=== PATIENT | male | born 1975 | race Two or more races ===

== ENCOUNTER 2018-11-15 07:05 | Emergency (ER) | payer OTHER ==
[~2018-11-15] VITALS: Ht 185.4 cm; Wt 113.4 kg
[2018-11-15 07:19] VITALS: BP 136/96
[2018-11-15 07:58] LABS: Urine WBC None Seen /hpf (0 - 3)
[2018-11-15 08:18] LABS: Basophils # (auto) 0 uL; Basophils % (auto) 0.7 % (0.0-2.0); Eosinophils # (auto) 0.1 uL; Eosinophils % (auto) 2.3 % (0.0-7.0); Hemoglobin 15.2 g/dL (13.5-17.5); Lymphocytes # (auto) 1.3 uL; Lymphocytes % (auto) 26.1 % (10.0-50.0); Mean Corpuscular Hemoglobin 29.4 pg (28.0-32.0); Mean Corpuscular Hgb Conc. 33.9 g/dL (32.0-36.0); Mean Corpuscular Volume 86.8 fL (80.0-100.0); Monocytes # (auto) 0.4 uL; Monocytes % (auto) 7.4 % (0.0-12.0); Neutrophils # (auto) 3.3 uL; Neutrophils % (auto) 63.5 % (37.0-80.0); Platelet Count (auto) 245 10^3/uL (140-450); Red Blood Cells 5.18 10^6/uL (4.5-5.90); Red Cell Distribution Width 13.7 % (11.8-14.3); White Blood Cell 5.2 10^3/uL (4.4-10.8)
[2018-11-15 08:24] LABS: Urine Bacteria NONE SEEN /hpf (None Seen); Urine Blood Negative /uL (Negative); Urine Mucus FEW (None Seen); Urine Specific Gravity 1.021 (1.001-1.035)
[2018-11-15 08:26] LABS: Alcohol, Urine < 3.0 mg/dL (0-5); Amphetamine Screen, Urine NEGATIVE (NEGATIVE); Barbiturate Scree,Urine NEGATIVE (NEGATIVE); Benzodiazephine Screen, Urine NEGATIVE (NEGATIVE); Cannabinoid Screen, Urine NEGATIVE (NEGATIVE); Cocaine Screen, Urine NEGATIVE (NEGATIVE); Opiate Scree,Urine NEGATIVE (NEGATIVE); Phencyclidine Screen, Urine NEGATIVE (NEGATIVE)
[2018-11-15 08:30] LABS: Alanine Aminotransferase 81 U/L (16-61); Amylase 45 U/L (25-115); Anion Gap 7 (5-15); Aspartate Aminotransferase 45 U/L (15-37); BUN/Creatinine Ratio 18.8; Blood Urea Nitrogen 16 mg/dL (7-18); Calcium 8.5 mg/dL (8.5-10.1); Carbon Dioxide 25 mmol/L (21-32); Chloride 106 mmol/L (98-107); GFR African American 127 mL/min; GFR Non-African American 105 mL/min; Glucose 108 mg/dL (74-106); Lipase 133 U/L (73-393); Potassium 4.1 mmol/L (3.5-5.1); Sodium 138 mmol/L (136-145)
[2018-11-15 08:34] LABS: Alkaline Phosphatase 79 U/L (45-117); Bilirubin, Total 0.5 mg/dL (0.2-1.0); Total Protein 7.6 g/dL (6.4-8.2)
== END 2018-11-15 09:27 | disposition left against medical advice (07) ==
LOC: ER 07:05
DX: R11.2 Nausea with vomiting, unspecified (principal); Z53.21 Procedure and treatment not carried out due to patient leaving prior to being seen by health care provider
CPT/HCPCS: 36415; 71045; 80053; 80307; 81001; 82150; 83690; 84484; 85025; 93005

== ENCOUNTER 2023-08-13 23:53 | Emergency (ER) | payer SELFPAY ==
[~2023-08-13] VITALS: Ht 185.4 cm; Wt 118.0 kg
[2023-08-14 00:34] LABS: Hematocrit 45.2 % (41.0-53.0); Hemoglobin 15.4 g/dL (13.5-17.5); Mean Corpuscular Hemoglobin 29.6 pg (28.0-32.0); Mean Corpuscular Hgb Conc. 34.1 g/dL (32.0-36.0)
[2023-08-14 00:43] LABS: White Blood Cell 7.4 10^3/uL (4.4-10.8)
[2023-08-14 00:56] LABS: Alanine Aminotransferase 67 U/L (7-40); Albumin 4.7 g/dL (3.2-4.8); Alkaline Phosphatase 104 U/L (46-116); Anion Gap 8 (5-15); Aspartate Aminotransferase 36 U/L (13-40); BUN/Creatinine Ratio 21.2 (10.0-20.0); Blood Urea Nitrogen 18 mg/dL (9-23); Carbon Dioxide 28 mmol/L (20-30); Chloride 104 mmol/L (98-107); Glucose 118 mg/dL (74-106); Lipase 50 U/L (12-53); Potassium 3.5 mmol/L (3.5-5.1); Sodium 140 mmol/L (136-145)
[2023-08-14 00:57] LABS: Bilirubin, Total 0.7 mg/dL (0.2-1.0); Total Protein 7.6 g/dL (5.7-8.2)
[2023-08-14 01:01] LABS: Band Neutrophils % (manual) 0; Basophils % (manual) 0 (0.0-2.0); Blast Cells 0; Eosinophils % (manual) 0 (0-7); Metamyelocytes % 0; Myelocytes % 0; Promyelocytes % 0; Reactive Lymphocytes 0
[2023-08-14 01:19] LABS: Lymphocytes % (manual) 41 (10.0-50.0); Monocytes % (manual) 10 (0-12); Platelet Estimate Adequate; RBC Morphology Normal
[2023-08-14] MEDS ORDERED: ZOFR4T PO (05:06)
[2023-08-14] MEDS ORDERED: OMEP20TA PO (05:06)
[2023-08-14] MEDS ORDERED: ACET-1304 PO (05:06)
[2023-08-14] MEDS: SODIUM CHLORIDE 0.9% 1,000 ML IV ONE (05:41)
[2023-08-14] MEDS: ONDANSETRON HCL 4 MG/2 ML VIAL IV ONE (05:42)
[2023-08-14] MEDS: PANTOPRAZOLE 40 MG/10 ML VIAL INJ IV ONE (05:44)
[2023-08-14] MEDS: MORPHINE SULFATE 4 MG/ML SYR/VIAL IV ONE (05:44)
[2023-08-14 06:36] VITALS: BP 156/96; PULSE 73; RESP 16; TEMP 98.2; O2SAT 100
== END 2023-08-14 06:36 | disposition home or self-care (01) ==
LOC: ER 23:53
DX: K80.50 Calculus of bile duct without cholangitis or cholecystitis without obstruction (principal); R11.2 Nausea with vomiting, unspecified; I10 Essential (primary) hypertension; F10.90 Alcohol use, unspecified, uncomplicated; Z87.891 Personal history of nicotine dependence; Z79.899 Other long term (current) drug therapy; Y90.0 Blood alcohol level of less than 20 mg/100 ml
CPT/HCPCS: 36415; 74176; 80053; 83690; 84484; 85007; 85027; 96361; 96374; 96375; 99285; C9113; J2270; J2405; J7030; 93005

== ENCOUNTER 2023-10-09 13:38 | Inpatient (IN) | payer MEDICAID, OTHER ==
[~2023-10-09] VITALS: Ht 185.4 cm; Wt 114.1 kg
[~2023-10-09 13:38] MED LIST: ACET-1304 PO; OMEP20TA PO; ZOFR4T PO
[2023-10-09 14:24] LABS: Basophils # (auto) 0 10 ^3/uL (0-0.2); Basophils % (auto) 0.5 % (0.0-2.0); Eosinophils # (auto) 0.1 10 ^3/uL (0-0.8); Eosinophils % (auto) 1.6 % (0.0-7.0); Hematocrit 46.4 % (41.0-53.0); Hemoglobin 15.9 g/dL (13.5-17.5); Lymphocytes # (auto) 0.8 10 ^3/uL (0.4-5.4); Lymphocytes % (auto) 17.2 % (10.0-50.0); Mean Corpuscular Hemoglobin 29.8 pg (28.0-32.0); Mean Corpuscular Hgb Conc. 34.3 g/dL (32.0-36.0); Mean Corpuscular Volume 86.9 fL (80.0-100.0); Monocytes # (auto) 0.5 10 ^3/uL (0-1.3); Monocytes % (auto) 10.5 % (0.0-12.0); Neutrophils # (auto) 3.4 10 ^3/uL (1.6-8.6); Neutrophils % (auto) 70.2 % (37.0-80.0); Nucleated Red Blood Cells % 0.1 %; Red Blood Cells 5.34 10^6/uL (4.5-5.90); Red Cell Distribution Width 12.8 % (11.8-14.3); White Blood Cell 4.8 10^3/uL (4.4-10.8)
[2023-10-09 14:38] LABS: Alanine Aminotransferase 342 U/L (7-40); Albumin 4.7 g/dL (3.2-4.8); Alkaline Phosphatase 277 U/L (46-116); Anion Gap 5 (5-15); Aspartate Aminotransferase 193 U/L (13-40); BUN/Creatinine Ratio 9.2 (10.0-20.0); Blood Urea Nitrogen 7 mg/dL (9-23); Calcium 9.9 mg/dL (8.5-10.1); Carbon Dioxide 27 mmol/L (20-30); Chloride 104 mmol/L (98-107); Glucose 110 mg/dL (74-106); Potassium 3.4 mmol/L (3.5-5.1); Sodium 136 mmol/L (136-145)
[2023-10-09 14:39] LABS: Bilirubin, Total 4.2 mg/dL (0.2-1.0); Total Protein 7.6 g/dL (5.7-8.2)
[2023-10-09 14:41] LABS: Urine Bacteria FEW /hpf (None Seen); Urine Blood Negative /uL (Negative); Urine Clarity Clear (Clear); Urine Color Dark-Yellow (Yellow); Urine Protein, UAD Negative (Negative); Urine Specific Gravity 1.009 (1.001-1.035); Urine Urobilinogen Normal (Negative); Urine WBC 2 /hpf (0 - 3)
[2023-10-09 14:55] LABS: Lipase 49 U/L (12-53)
[2023-10-09] MEDS: ONDANSETRON HCL 4 MG/2 ML VIAL IV ONE (14:57)
[2023-10-09] MEDS: PIPERACILLIN-TAZOB 3.375GM 100 ML IV ONE (14:57)
[2023-10-09] MEDS: MORPHINE SULFATE 4 MG/ML SYR/VIAL IV ONE (14:59)
[2023-10-09] MEDS: SODIUM CHLORIDE 0.9% 1,000 ML IVB ONE (15:00)
[2023-10-09 15:53] LABS: INR 1.09 (0.9-1.15); Partial Thromboplastin Time 29.8 SEC (24.5-34.5); Prothrombin Time 11.5 sec (9.3-11.8)
[2023-10-09] MEDS ORDERED: ACETAMINOPHEN 325 MG TAB PO PRN ×2 (16:30)
[2023-10-09] MEDS ORDERED: HYDROcodone-ACET 5/325MG TAB PO PRN (16:30)
[2023-10-09] MEDS: SODIUM CHLORIDE 0.9% 1,000 ML IV SCH (16:30)
[2023-10-09 16:46] VITALS: PULSE 75; RESP 16
[2023-10-09 18:21] LABS: Blood Alcohol < 3.0 mg/dL (<10)
[2023-10-09 18:22] LABS: Triglycerides 329 mg/dL (< 150)
[2023-10-09 18:23] LABS: Amylase 30 U/L (30-118)
[2023-10-09 18:23] LABS: LDL Cholesterol 129 mg/dL (< 100)
[2023-10-09 18:24] LABS: Cholesterol 228 mg/dL (< 200); HDL Cholesterol 17 mg/dL (40-59)
[2023-10-09 19:01] VITALS: PULSE 71; RESP 18; O2SAT 93
[2023-10-09 20:00] VITALS: PULSE 71; RESP 18; O2SAT 95
[2023-10-09] MEDS ORDERED: PIPERACILLIN-TAZOB 3.375GM 100 ML IV SCH (20:00)
[2023-10-09 21:00] VITALS: BP 135/93; PULSE 71; RESP 18; TEMP 98; O2SAT 93
[2023-10-09] MEDS: PIPERACILLIN-TAZOB 3.375GM 100 ML IV SCH (23:03)
[2023-10-09] MEDS: POTASSIUM CHL 20MEQ/100ML 100 ML IV ONE (23:05)
[2023-10-10] VITALS (8 sets, daily range): BP systolic 122–150; BP diastolic 72–100; PULSE 61–96; RESP 17–18; TEMP 97.7–98.1; O2SAT 94–98
[2023-10-10 07:26] LABS: Basophils # (auto) 0 10 ^3/uL (0-0.2); Basophils % (auto) 0.5 % (0.0-2.0); Eosinophils # (auto) 0.1 10 ^3/uL (0-0.8); Eosinophils % (auto) 1.9 % (0.0-7.0); Hematocrit 40.2 % (41.0-53.0); Lymphocytes # (auto) 1.1 10 ^3/uL (0.4-5.4); Mean Corpuscular Hgb Conc. 34.8 g/dL (32.0-36.0); Mean Corpuscular Volume 86.4 fL (80.0-100.0); Monocytes # (auto) 0.5 10 ^3/uL (0-1.3); Monocytes % (auto) 12.2 % (0.0-12.0); Neutrophils # (auto) 2.4 10 ^3/uL (1.6-8.6); Neutrophils % (auto) 58.4 % (37.0-80.0); Nucleated Red Blood Cells % 0.1 %; Red Blood Cells 4.65 10^6/uL (4.5-5.90); Red Cell Distribution Width 13.2 % (11.8-14.3)
[2023-10-10 07:30] LABS: Alanine Aminotransferase 265 U/L (7-40); Albumin 3.9 g/dL (3.2-4.8); Alkaline Phosphatase 225 U/L (46-116); Anion Gap 8 (5-15); Aspartate Aminotransferase 150 U/L (13-40); BUN/Creatinine Ratio 8.8 (10.0-20.0); Bilirubin, Total 2.9 mg/dL (0.2-1.0); Blood Urea Nitrogen 6 mg/dL (9-23); Calcium 9.1 mg/dL (8.5-10.1); Carbon Dioxide 21 mmol/L (20-30); Chloride 109 mmol/L (98-107); Glucose 96 mg/dL (74-106); Potassium 3.5 mmol/L (3.5-5.1); Sodium 138 mmol/L (136-145); Total Protein 6.2 g/dL (5.7-8.2)
[2023-10-10] MEDS: PANTOPRAZOLE 40 MG/10 ML VIAL INJ IV SCH (16:19)
[2023-10-10] MEDS: MORPHINE SULFATE INJ 2 MG/ml SYRG IV PRN (22:05)
[2023-10-11] VITALS (7 sets, daily range): BP systolic 130–155; BP diastolic 55–98; PULSE 59–65; RESP 16–19; TEMP 97.8–98.1; O2SAT 95–99
[2023-10-11 07:16] LABS: Basophils # (auto) 0 10 ^3/uL (0-0.2); Basophils % (auto) 0.4 % (0.0-2.0); Eosinophils # (auto) 0.1 10 ^3/uL (0-0.8); Eosinophils % (auto) 2.8 % (0.0-7.0); Hematocrit 41.9 % (41.0-53.0); Hemoglobin 14.3 g/dL (13.5-17.5); Lymphocytes # (auto) 1.2 10 ^3/uL (0.4-5.4); Mean Corpuscular Hemoglobin 29.7 pg (28.0-32.0); Mean Corpuscular Hgb Conc. 34.2 g/dL (32.0-36.0); Mean Corpuscular Volume 86.7 fL (80.0-100.0); Monocytes # (auto) 0.4 10 ^3/uL (0-1.3); Monocytes % (auto) 7.8 % (0.0-12.0); Neutrophils # (auto) 3.1 10 ^3/uL (1.6-8.6); Nucleated Red Blood Cells % 0.4 %; Red Blood Cells 4.83 10^6/uL (4.5-5.90); Red Cell Distribution Width 12.9 % (11.8-14.3); White Blood Cell 4.8 10^3/uL (4.4-10.8)
[2023-10-11 07:54] LABS: Alanine Aminotransferase 246 U/L (7-40); Alkaline Phosphatase 234 U/L (46-116); Anion Gap 7 (5-15); Aspartate Aminotransferase 133 U/L (13-40); BUN/Creatinine Ratio 10.4 (10.0-20.0); Blood Urea Nitrogen 7 mg/dL (9-23); Calcium 9.2 mg/dL (8.5-10.1); Carbon Dioxide 21 mmol/L (20-30); Chloride 108 mmol/L (98-107); Glucose 88 mg/dL (74-106); Potassium 3.6 mmol/L (3.5-5.1); Sodium 136 mmol/L (136-145)
[2023-10-11 07:55] LABS: Bilirubin, Total 2.1 mg/dL (0.2-1.0); Total Protein 6.5 g/dL (5.7-8.2)
[2023-10-11] MEDS: ONDANSETRON HCL 4 MG/2 ML VIAL IV PRN (09:07)
[2023-10-12] VITALS (8 sets, daily range): BP systolic 124–153; BP diastolic 80–100; PULSE 52–71; RESP 16; TEMP 97.4–98.7; O2SAT 94–99
[2023-10-12] MEDS: MELATONIN 5 MG TAB PO ONE (23:41)
[2023-10-13] VITALS (7 sets, daily range): BP systolic 125–153; BP diastolic 50–107; PULSE 50–66; RESP 16–18; TEMP 97.3–98.3; O2SAT 93–99
[2023-10-13 09:02] LABS: Hepatitis B Surface Antigen Negative (Negative)
[2023-10-13 09:23] LABS: Hepatitis B Core IgM Negative
[2023-10-13 09:24] LABS: Hepatitis C Antibody Negative (Negative)
[2023-10-13 09:47] LABS: Hepatitis A Ab IgM Positive
[2023-10-13] MEDS: ATORVASTATIN 20 MG TAB PO SCH (21:51)
[2023-10-14] VITALS (7 sets, daily range): BP systolic 126–158; BP diastolic 81–98; PULSE 50–55; RESP 18–21; TEMP 97.1–98.1; O2SAT 96–100
[2023-10-14 07:29] LABS: Alanine Aminotransferase 218 U/L (7-40); Albumin 4.5 g/dL (3.2-4.8); Alkaline Phosphatase 210 U/L (46-116); Anion Gap 6 (5-15); Aspartate Aminotransferase 106 U/L (13-40); Calcium 9.6 mg/dL (8.5-10.1); Carbon Dioxide 23 mmol/L (20-30); Chloride 109 mmol/L (98-107); Glucose 97 mg/dL (74-106); Potassium 3.9 mmol/L (3.5-5.1); Sodium 138 mmol/L (136-145)
[2023-10-14 07:30] LABS: Bilirubin, Total 1.5 mg/dL (0.2-1.0); Total Protein 7.3 g/dL (5.7-8.2)
[2023-10-14 07:31] LABS: BUN/Creatinine Ratio 6.5 (10.0-20.0); Blood Urea Nitrogen < 5 mg/dL (9-23)
[2023-10-15] VITALS (7 sets, daily range): BP systolic 129–155; BP diastolic 78–97; PULSE 52–71; RESP 16–20; TEMP 97.4–99.8; O2SAT 18–100
[2023-10-15] MEDS: GADOTERATE MEG 10 MMOL/20ml INJ (0.5MMOL/ml) IV ONE (12:03)
[2023-10-16] VITALS (9 sets, daily range): BP systolic 118–157; BP diastolic 76–98; PULSE 54–99; RESP 10–20; TEMP 97.5–98.4; O2SAT 93–98
[2023-10-16] MEDS ORDERED: GLYCOPYRROLATE 0.2 MG/ML 1ML VIAL ONE (10:18)
[2023-10-16] MEDS ORDERED: SODIUM CHLORIDE LOCK 10 ML ONE (10:18)
[2023-10-16] MEDS ORDERED: ONDANSETRON HCL 4 MG/2 ML VIAL ONE (10:18)
[2023-10-16] MEDS ORDERED: NEOSTIGMINE 1 MG/ML INJ (10mg/10ML VIAL) ONE (10:18)
[2023-10-16] MEDS ORDERED: KETAMINE 50mg/ML 1ml syringe ONE (10:18)
[2023-10-16] MEDS ORDERED: LIDOCAINE 2% (LOCAL ANESTH.) PF 5ml SDV ONE ×2 (10:18→11:09)
[2023-10-16] MEDS ORDERED: fentaNYL CITRATE 100 MCG/2 ML VL ONE (10:18)
[2023-10-16] MEDS ORDERED: MEPERIDINE HCL (50 MG/ML) 1 ML VIAL ONE (10:18)
[2023-10-16] MEDS ORDERED: PROPOFOL 10 MG/ML 20 ML IV ONE (10:18)
[2023-10-16] MEDS ORDERED: MIDAZOLAM HCL 2MG/2ML 2ml VIAL (1mg/ml) ONE (10:18)
[2023-10-16] MEDS ORDERED: ROCURONIUM 10MG/ML 10ML VIAL IV ONE (10:18)
[2023-10-16] MEDS: LIDOCAINE 2% JELLY 11ml (GLYDO) ONE (10:32)
[2023-10-16] MEDS ORDERED: HYDROmorphone HCL 2 MG/ML VL/or syr IV PRN ×2 (11:00)
[2023-10-16] MEDS: METOCLOPRAMIDE HCL 5MG/ml INJ 2ml VIAL IV ONE (11:00)
[2023-10-16] MEDS ORDERED: fentaNYL CITRATE 100 MCG/2 ML VL IV PRN (11:00)
[2023-10-16] MEDS ORDERED: MORPHINE SULFATE INJ 2 MG/ml SYRG IV PRN (11:00)
[2023-10-16] MEDS: LIDOCAINE 1% HCL (LOCAL ANESTH.) INJ 20ML MDV ONE (11:36)
[2023-10-17] VITALS (7 sets, daily range): BP systolic 122–142; BP diastolic 86–94; PULSE 64–97; RESP 17–18; TEMP 97.5–98.3; O2SAT 94–100
[2023-10-17] MEDS: IOHEXOL 300 MG/ML 100ML BOTTLE IJ ONE (10:51)
[2023-10-17] MEDS: OMNIPAQUE 12mg/ml 500ml ORAL SOLUTION PO ONE ×2 (10:51)
[2023-10-17] MEDS ORDERED: HYDR-4902 PO (15:33)
[2023-10-17] MEDS ORDERED: LEVO500T91 PO (15:33)
== END 2023-10-17 18:19 | disposition home or self-care (01) | DRG 234 ==
LOC: ER 13:45 → OVERFLOW 16:31 → WEST WING 22:55
PROVIDERS: ADMIT Registered Nurse; ATTEND Internal Medicine
PROC: 0DTJ4ZZ Resection of Appendix, Percutaneous Endoscopic Approach (ICD-10-PCS; principal; 2023-10-16 11:25)
DX: K35.890 Other acute appendicitis without perforation or gangrene (principal); E66.9 Obesity, unspecified; E78.5 Hyperlipidemia, unspecified; K82.8 Other specified diseases of gallbladder; I10 Essential (primary) hypertension; R74.01 Elevation of levels of liver transaminase levels; F10.20 Alcohol dependence, uncomplicated; Z68.33 Body mass index [BMI] 33.0-33.9, adult; Z79.899 Other long term (current) drug therapy; Z87.891 Personal history of nicotine dependence; Y90.9 Presence of alcohol in blood, level not specified
CPT/HCPCS: 36415; 74176; 74177; 74181; 76705; 78226; 80053; 80061; 80074; 80320; 81001; 82150; 83036; 83690; 85025; 85610; 85730; 87045; 87427; C9113; G0378; J2001; J2250; J2405; J2543; J2704; J3480

== ENCOUNTER 2024-09-02 06:19 | Emergency (ER) | payer SELFPAY ==
[~2024-09-02] VITALS: Ht 185.4 cm; Wt 118.1 kg
[~2024-09-02 06:19] MED LIST changes: -ACET-1304 PO; +HYDR-4902 PO; +LEVO500T91 PO; -OMEP20TA PO; -ZOFR4T PO
--- NOTE | 2024-09-02 06:35 | ED.PDOC ---
HPI Comments 49 y/o M, BIBA, with PMHx of HLD and HTN presents to the ED for CC of chest pain. EMS reports, patient is coming from home where he complains of left sided chest pain that radiates down his arm onset, 0300 this morning (09/02/24). Patient reports, pain to feel as discomfort that woke him up out of his sleep. Patient comments, checking his blood pressure prior EMS arrival reports hypertensive reading of 170/140mmHg. In route to the ED, patient was given 324mg of Aspirin accompanied by Nitro; patient reports current 10/05 chest pain. Patient denies palpitations, shortness of breath, nausea, or vomiting. No other symptoms or modifying factors present at this time. Time Seen by MD: 06:20 Primary Care Provider: UNKNOWN Reviewed Notes: Nurses Notes, Medications, Allergies Allergies: Coded Allergies: NO KNOWN ALLERGIES (Unverified , 11/28/09) Home Meds Active Scripts Levofloxacin Hemihydrate (LEVAQUIN 500 MG) 500 Mg Tab, 1 TAB PO DAILY, #7 TAB Prov:DEBBIE CARTER MD 10/17/23 Hydrocodone-Acetaminophen (Hydrocodone Bitartrate/AC 5-325 mg) 1 Tab Tab, 1 TAB PO Q4HP PRN, #20 TAB Prov:DEBBIE CARTER MD 10/17/23 Information Source: Patient, Emergency Med Personnel Mode of Arrival: EMS Severity: Moderate Timing: Hours Duration: Since onset Prehospital treatment: None Location: Chest (L) Radiation: Arm (L) Onset: At Rest Cardiac Risk Factors: Hyperlipidemia, HTN PE Risk Factors: None History of: None Modifying Factors: Nothing Associated Signs and Symptoms: None Past Medical History PAST MEDICAL HISTORY: High Lipids, HTN Surgical History: Denies all surgeries Family History Family History: Reviewed,noncontributory to illness, Family hx of DM Social History Smoker: Quit Greater Than 1 Year Alcohol: Heavy Drugs: Denies Drug Use Lives In: Home Constitutional: denies: chills, diaphoresis, fatigue, fever, malaise, sweats, weakness, others EENTM: denies: blurred vision, double vision, ear bleeding, ear discharge, ear drainage, ear pain, ear ringing, eye pain, eye redness, hearing loss, mouth pain, mouth swelling, nasal discharge, nose bleeding, nose congestion, nose pain, photophobia, tearing, throat pain, throat swelling, voice changes, others Respiratory: denies: cough, hemoptysis, orthopnea, SOB at rest, shortness of breath, SOB with excertion, stridor, wheezing, others Cardiovascular: reports: chest pain; denies: dizzy spells, diaphoresis, Dyspnea on exertion, edema, irregular heart beat, left arm pain, lightheadedness, palpitations, PND, syncope, others Gastrointestinal: denies: abdomen distended, abdominal pain, blood streaked bowels, constipated, diarrhea, dysphagia, difficulty swallowing, hematemesis, melena, nausea, poor appetite, poor fluid intake, rectal bleeding, rectal pain, vomiting, others Genitourinary: denies: burning, dysuria, flank pain, frequency, hematuria, incontinence, penile discharge, penile sore, pain, testicle pain, testicle swelling, urgency, others Neurological: denies: dizziness, fainting, headache, left sided numbness, left sided weakness, numbness, paresthesia, pre-existing deficit, right sided numbness, right sided weakness, seizure, speech problems, tingling, tremors, w eakness, others Musculoskeletal: denies: back pain, gout, joint pain, joint swelling, muscle pain, muscle stiffness, neck pain, others Integumetry: denies: bruises, change in color, change in hair/nails, dryness, laceration, lesions, lumps, rash, wounds, others Allergic/Immunocompromised: denies: Difficulty Healing, Frequent Infections, Hives, Itching, others Hematologic/Lymphatic: denies: anemia, blood clots, easy bleeding, easy bruising, swollen glands, others Endocrine: denies: excessive hunger, excessive sweating, excessive thirst, excessive urination, flushing, intolerance to cold, intolerance to heat, unexplained weight gain, unexplained weight loss, others Psychiatric: denies: anxiety, bipolar disorder, depression, hopeless, panic disorder, schizophrenia, sleepless, suicidal, others All Other Systems: Reviewed and Negative Physical Exam General Appearance: No Apparent Distress, Normal HEENT: Normal ENT Inspection, Pharynx Normal, TMs Normal Neck: Full Range of Motion, Non-Tender, Normal, Normal Inspection Respiratory: Chest Non-Tender, Lungs Clear, No Accessory Muscle Use, No Respiratory Distress, Normal Breath Sounds Cardiovascular: No Edema, No Murmur, No Gallop, Normal Peripheral Pulses, Regular Rate/Rhythm Breast Exam: Deferred Gastrointestinal: No Organomegaly, Non Tender, No Pulsatile Mass, Normal Bowel Sounds, Soft Genitalia: Deferred Pelvic: Deferred Rectal: Deferred Extremities: No calf tenderness, Normal capillary refill, Normal inspection, Normal range of motion, Non-tender, No pedal edema Musculoskeletal : Apperance: Normal Neurologic: Alert, foreign agent II-XII nml as Tested, No Motor Deficits, Normal Affect, Normal Mood, No Sensory Deficits Cerebellar Function: Normal Reflexes: Normal Skin: Dry, Normal Color, Warm Lymphatic: No Adenopathy Was a procedure done? Was a procedure done?: No CP Differential Dx Differential Diagnosis: Anxiety / Panic Attack Differential Diagnosis: HTN Essential, HTN Accelerated Differential Diagnosis: Chest Wall Pain, Costochondritis X-Ray, Labs, Meds, VS Vital Signs Date Time Temp Pulse Resp B/P (MAP) Pulse Ox O2 Delivery O2 Flow Rate FiO2 09/02/24 08:38 75 14 96 Room Air* 0 21 09/02/24 08:19 73 15 96 Room Air 09/02/24 08:12 98.9 73 15 125/90 (102) 96 98.9 09/02/24 06:21 79 09/02/24 06:20 97.9 80 18 142/87 (105) 95 97.9 Lab Test 09/02/24 07:30 09/02/24 06:35 Range/Units Troponin I High Sensitivity 5 6 </=54 ng/L White Blood Count 5.4 4.4-10.8 10^3/uL Red Blood Count 5.07 4.5-5.90 10^6/uL Hemoglobin 15.1 13.5-17.5 g/dL Hematocrit 43.0 41.0-53.0 % Mean Corpuscular Volume 84.7 80.0-100.0 fL Mean Corpuscular Hemoglobin 29.8 28.0-32.0 pg Mean Corpuscular Hemoglobin Concent 35.2 32.0-36.0 g/dL Red Cell Distribution Width 12.8 11.8-14.3 % Platelet Count 272 140-450 10^3/uL Mean Platelet Volume 6.3 L 6.9-10.8 fL Neutrophils (%) (Auto) 52.0 37.0-80.0 % Lymphocytes (%) (Auto) 36.7 10.0-50.0 % Monocytes (%) (Auto) 6.6 0.0-12.0 % Eosinophils (%) (Auto) 4.0 0.0-7.0 % Basophils (%) (Auto) 0.7 0.0-2.0 % Neutrophils # (Auto) 2.8 1.6-8.6 10 ^3/uL Lymphocytes # (Auto) 2.0 0.4-5.4 10 ^3/uL Monocytes # (Auto) 0.4 0-1.3 10 ^3/uL Eosinophils # (Auto) 0.2 0-0.8 10 ^3/uL Basophils # (Auto) 0 0-0.2 10 ^3/uL Nucleated Red Blood Cells 0.1 % Sodium Level 139 136-145 mmol/L Potassium Level 3.7 3.5-5.1 mmol/L Chloride Level 104 98-107 mmol/L Carbon Dioxide Level 25 20-31 mmol/L Anion Gap 10 5-15 Blood Urea Nitrogen 10 9-23 mg/dL Creatinine 0.72 0.700-1.30 mg/dL Glomerular Filtration Rate Calc 112 >90 mL/min BUN/Creatinine Ratio 13.9 10.0-20.0 Serum Glucose 103 74-106 mg/dL Calcium Level 9.1 8.7-10.4 mg/dL Current Medications Medications (Trade) Dose Ordered Sig/Jillian Route Start Time Stop Time Status Last Admin Famotidine (Pepcid Injection) 20 mg ONCE ONCE IV 09/02/24 06:30 09/02/24 06:31 DC 09/02/24 08:35 Al Hydrox/Mg Hydrox/Simethicone (Maalox Plus) 15 ml ONCE ONCE PO 09/02/24 06:30 09/02/24 06:31 DC 09/02/24 08:17 [place] [id number] Ph: [phone] DIAGNOSTIC IMAGING Diagnostic Imaging Report : [id number] Signed PATIENT: TAMARA GEIGER ACCT: [id number] UNIT: [id number] : 1975 LOC: ER ROOM / BED: / AGE / SEX: 49 / M ADM STATUS: REG ER SERVICE 4 ORDERING PHYSICIAN: ROSALINA LANDEROS MD PROCEDURE(s): CXRP - CHEST PORTABLE REASON: chest pain ORDER NUMBER(s): [id number], ACCESSION NUMBER(s): [id number] EXAM: XR Chest, 1 View CLINICAL INDICATION: chest pain TECHNIQUE: Frontal view of the chest. COMPARISON: CHEST PORTABLE on DOS: 11/15/18 FINDINGS: LUNGS AND PLEURAL SPACES: Unremarkable. No consolidation. No pneumothorax. HEART: Unremarkable. No cardiomegaly. MEDIASTINUM: Unremarkable. Normal mediastinal contour. BONES/JOINTS: Unremarkable. No acute fracture. OTHER FINDINGS: . IMPRESSION: No acute cardiopulmonary process. ATED BY: HAMZAH KO MD DICTATED DATE/TIME: 09/02/24705 SIGNED BY: HAMZAH KO MD SIGNED DATE/TIME: 09/02/24705 CC: Time of 1ST Reevaluation: 06:30 Reevaluation 1ST: Unchanged Patient Education/Counseling: Diagnosis, Treatment Family Education/Counseling: No Family Present Departure 1 Departure Time of Disposition: 09:04 (Patient presented with chest pain that was concerning for possible STEMI, ACS, PE, Pneumonia, Muscle Strain, COPD, Dissection. Data: 1. I ordered and reviewed the result of at least 3 labs including a CBC, BMP, and Troponin. 2. I independently interpreted the following tests: EKG which shows normal sinus rhythm and Chest X-ray which shows a benign chest.Risk:This patient presented with a high risk of morbidity due to further diagnostic testing or treatment and may suffer from an acute cardiac or respiratory disorder. After review of all the data patient is unlikely to have a pe , dissection, and is low risk for acs. Patient is stable at this time.Workup so far is benign and patient will be discharged with outpatient followup. ) Impression: Primary Impression: Acute chest pain Disposition: HOME / SELF CARE / HOMELESS Condition: Stable Additional Instructions: You presented today with chest pain. Your workup today was benign including labs, troponin, EKG, chest x-ray. Your pain may be from musculoskeletal strain, acid reflux, anxiety, or many other factors. It is important to follow up with your regular doctor within 1 week. If your symptoms worsen or you have any other concerns please return to the emergency room. Discharged With: Self Critical Care Note Critical Care Time?: No Stability Stability form required: No Heart Score Heart Score: Heart Score Response (Comments) Value History N/A 0 EKG N/A 0 Age N/A 0 Risk Factors N/A 0 Troponin N/A 0 Total 0 I personally scribed for ROSALINA LANDEROS MD ([email or web address]) on 09/02/24 at 06:35. Electronically submitted by Fatimah Geiger ([email or web address]). I personally scribed for ROSALINA LANDEROS MD ([email or web address]) on 09/02/24 at 07:39. Electronically submitted by Fatimah Geiger ([email or web address]). ROSALINA LANDEROS MD September 02, 2024 06:35
--- NOTE | 2024-09-02 06:41 | ECG ---
[facility] Test Date: 2024-09-02 Test Time: 06:21:57 Pat Name: TAMARA GEIGER Department: ED Room: Gender: M Capacity Analyst: THADDEUS : 1975 Requested By: ROSALINA LANDEROS Order Number: [id number] Reading MD: Da Valle Measurements Intervals [place] Rate: 79 P: 13 MA: 171 QRS: -44 QRSD: 91 T: 7 QT: 364 QTc: 418 Interpretive Statements Sinus rhythm Left axis deviation Abnormal R-wave progression, late transition Electronically Signed On 09-02-2024 21:09:06 PDT by Da Valle Please click the below link to view image of tracing.
[2024-09-02 06:56] LABS: Chloride 104 mmol/L (98-107); Potassium 3.7 mmol/L (3.5-5.1); Sodium 139 mmol/L (136-145)
[2024-09-02 06:57] LABS: Anion Gap 10 (5-15); Calcium 9.1 mg/dL (8.7-10.4); Carbon Dioxide 25 mmol/L (20-31)
[2024-09-02 07:02] LABS: BUN/Creatinine Ratio 13.9 (10.0-20.0); Basophils # (auto) 0 10 ^3/uL (0-0.2); Basophils % (auto) 0.7 % (0.0-2.0); Blood Urea Nitrogen 10 mg/dL (9-23); Eosinophils # (auto) 0.2 10 ^3/uL (0-0.8); Glucose 103 mg/dL (74-106); Hemoglobin 15.1 g/dL (13.5-17.5); Lymphocytes % (auto) 36.7 % (10.0-50.0); Mean Corpuscular Hemoglobin 29.8 pg (28.0-32.0); Mean Corpuscular Hgb Conc. 35.2 g/dL (32.0-36.0); Mean Corpuscular Volume 84.7 fL (80.0-100.0); Monocytes # (auto) 0.4 10 ^3/uL (0-1.3); Monocytes % (auto) 6.6 % (0.0-12.0); Neutrophils # (auto) 2.8 10 ^3/uL (1.6-8.6); Nucleated Red Blood Cells % 0.1 %; Platelet Count (auto) 272 10^3/uL (140-450); Red Blood Cells 5.07 10^6/uL (4.5-5.90); Red Cell Distribution Width 12.8 % (11.8-14.3); White Blood Cell 5.4 10^3/uL (4.4-10.8)
--- NOTE | 2024-09-02 07:09 | DVH ---
EXAM: XR Chest, 1 View CLINICAL INDICATION: chest pain TECHNIQUE: Frontal view of the chest. COMPARISON: CHEST PORTABLE on DOS: 11/15/18 FINDINGS: LUNGS AND PLEURAL SPACES: Unremarkable. No consolidation. No pneumothorax. HEART: Unremarkable. No cardiomegaly. MEDIASTINUM: Unremarkable. Normal mediastinal contour. BONES/JOINTS: Unremarkable. No acute fracture. OTHER FINDINGS: . IMPRESSION: No acute cardiopulmonary process.
[2024-09-02 08:12] VITALS: BP 125/90; TEMP 98.9
[2024-09-02] MEDS: MAALOX PLUS or MAALOX 30 ML PO ONE (08:17)
[2024-09-02] MEDS: FAMOTIDINE (10MG/ML) 2ML VL IV ONE (08:35)
[2024-09-02 08:38] VITALS: PULSE 75; RESP 14; O2SAT 96
== END 2024-09-02 08:50 | disposition home or self-care (01) ==
LOC: EDBD 06:19 → ER 06:19
DX: R07.89 Other chest pain (principal); E78.5 Hyperlipidemia, unspecified; I10 Essential (primary) hypertension; Z87.891 Personal history of nicotine dependence; Z79.899 Other long term (current) drug therapy
CPT/HCPCS: 36415; 71045; 80048; 84484; 85025; 93005; 96374; 99285; J3490

== ENCOUNTER 2025-04-18 15:58 | Inpatient (IN) | payer MEDICAID ==
[~2025-04-18] VITALS: Ht 185.4 cm; Wt 115.9 kg
--- NOTE | 2025-04-18 16:26 | ED.PDOC ---
GI ASSESSMENT HPI Comments 50-year-old male who comes in with chief complaint of epigastric pain. The patient states that the pain does not radiate started at approximately 930 this morning. The patient states that he is having some nausea and vomiting but no fever. The patient is also having some chills. 911 was called and the patient was transported to our facility. Upon arrival, the patient is still having the pain. Chief Complaint: Abdominal Pain Time Seen by MD: 16:00 Primary Care Provider: UNKNOWN Reviewed Notes: Nurses Notes, Jewel Hole Finish Opener Notes, Medications, Allergies (see list ) Allergies: Coded Allergies: NO KNOWN ALLERGIES (Unverified , 11/28/09) Home Meds Active Scripts Levofloxacin Hemihydrate (LEVAQUIN 500 MG) 500 Mg Tab, 1 TAB PO DAILY, #7 TAB Prov:DEBBIE CARTER MD 10/17/23 Hydrocodone-Acetaminophen (Hydrocodone Bitartrate/AC 5-325 mg) 1 Tab Tab, 1 TAB PO Q4HP PRN, #20 TAB Prov:DEBBIE CARTER MD 10/17/23 Information Source: Patient, Emergency Med Personnel, Spouse Mode of Arrival: EMS Timing: Hours (Nine hundred thirty this morning) Duration: Since onset Prehospital treatment: Shorts Sifter Quality: Aching, Burning Vomitus: Bilious Stool: Normal Severity: Moderate Recent: None Recent Hx of: None Pain Location: Epigastric Modifying Factors: Nothing Associated sign and symptoms: Nausea, Vomiting, Abdominal Pain, Other (Chills) Past Medical History PAST MEDICAL HISTORY: High Lipids, HTN Surgical History: Appendectomy Family History Family History: Family hx of Cancer Social History Smoker: Quit Greater Than 1 Year Alcohol: Heavy Drugs: Denies Drug Use Lives In: Home Constitutional: denies: chills, diaphoresis, fatigue, fever, malaise, sweats, weakness, others EENTM: denies: blurred vision, double vision, ear bleeding, ear discharge, ear drainage, ear pain, ear ringing, eye pain, eye redness, hearing loss, mouth pain, mouth swelling, nasal discharge, nose bleeding, nose congestion, nose pain, photophobia, tearing, throat pain, throat swelling, voice changes, others Respiratory: denies: cough, hemoptysis, orthopnea, SOB at rest, shortness of breath, SOB with excertion, stridor, wheezing, others Cardiovascular: denies: chest pain, dizzy spells, diaphoresis, Dyspnea on exertion, edema, irregular heart beat, left arm pain, lightheadedness, palpitations, PND, syncope, others Gastrointestinal: reports: abdominal pain, nausea, vomiting; denies: abdomen distended, blood streaked bowels, constipated, diarrhea, dysphagia, difficulty swallowing, hematemesis, melena, poor appetite, poor fluid intake, rectal bleeding, rectal pain, others Genitourinary: denies: burning, dysuria, flank pain, frequency, hematuria, incontinence, penile discharge, penile sore, pain, testicle pain, testicle swelling, urgency, others Neurological: denies: dizziness, fainting, headache, left sided numbness, left sided weakness, numbness, paresthesia, pre-existing deficit, right sided numbness, right sided weakness, seizure, speech problems, tingling, tremors, weakness, others Musculoskeletal: denies: back pain, gout, joint pain, joint swelling, muscle pain, muscle stiffness, neck pain, others Integumetry: denies: bruises, change in color, change in hair/nails, dryness, laceration, lesions, lumps, rash, wounds, others Allergic/Immunocompromised: denies: Difficulty Healing, Frequent Infections, Hives, Itching, others Hematologic/Lymphatic: denies: anemia, blood clots, easy bleeding, easy bruising, swollen glands, others Endocrine: denies: excessive hunger, excessive sweating, excessive thirst, excessive urination, flushing, intolerance to cold, intolerance to heat, unexplained weight gain, unexplained weight loss, others Psychiatric: denies: anxiety, bipolar disorder, depression, hopeless, panic disorder, schizophrenia, sleepless, suicidal, others Physical Exam General Appearance: Moderate Distress HEENT: Normal ENT Inspection, Pharynx Normal, TMs Normal Neck: Full Range of Motion, Non-Tender, Normal, Normal Inspection Respiratory: Chest Non-Tender, Lungs Clear, No Accessory Muscle Use, No Respiratory Distress, Normal Breath Sounds Cardiovascular: No Edema, No JVD, No Murmur, No Gallop, Normal Peripheral Pulses, Regular Rate/Rhythm Breast Exam: Deferred Gastrointestinal: Epigastric, No Organomegaly, No Pulsatile Mass, Normal Bowel Sounds, Soft, Tenderness Genitalia: Deferred Pelvic: Deferred Rectal: Deferred Extremities: No calf tenderness, Normal capillary refill, Normal inspection, Normal range of motion, Non-tender, No pedal edema Musculoskeletal : Apperance: Normal Neurologic: Alert, supervisor chemical II-XII nml as Tested, No Motor Deficits, Normal Affect, Normal Mood, No Sensory Deficits Cerebellar Function: Normal Reflexes: Normal Skin: Dry, Normal Color, Warm Lymphatic: No Adenopathy Was a procedure done? Was a procedure done?: No GI differential Dx Differential Diagnosis: Appendicitis, Cholangitis, Cholecystitis, Gastritis/PUD, Gastroenteritis, Pancreatitis, UTI, Electrolyte Imbalance, Food Poisoning X-Ray, Labs, Meds, VS Vital Signs Date Time Temp Pulse Resp B/P (MAP) Pulse Ox O2 Delivery O2 Flow Rate FiO2 04/18/25 15:58 98.6 98 20 144/84 99 98.6 Lab Test 04/18/25 16:21 Range/Units White Blood Count 10.5 4.4-10.8 10^3/uL Red Blood Count 5.17 4.5-5.90 10^6/uL Hemoglobin 15.5 13.5-17.5 g/dL Hematocrit 45.4 41.0-53.0 % Mean Corpuscular Volume 87.9 80.0-100.0 fL Mean Corpuscular Hemoglobin 30.0 28.0-32.0 pg Mean Corpuscular Hemoglobin Concent 34.2 32.0-36.0 g/dL Red Cell Distribution Width 13.1 11.8-14.3 % Platelet Count 244 140-450 10^3/uL Mean Platelet Volume 6.5 L 6.9-10.8 fL Neutrophils (%) (Auto) 96.0 H 37.0-80.0 % Lymphocytes (%) (Auto) 2.6 L 10.0-50.0 % Monocytes (%) (Auto) 1.1 0.0-12.0 % Eosinophils (%) (Auto) 0.1 0.0-7.0 % Basophils (%) (Auto) 0.2 0.0-2.0 % Neutrophils # (Auto) 10.1 H 1.6-8.6 10 ^3/uL Lymphocytes # (Auto) 0.3 L 0.4-5.4 10 ^3/uL Monocytes # (Auto) 0.1 0-1.3 10 ^3/uL Eosinophils # (Auto) 0 0-0.8 10 ^3/uL Basophils # (Auto) 0 0-0.2 10 ^3/uL Nucleated Red Blood Cells 0.1 % Sodium Level 140 136-145 mmol/L Potassium Level 3.8 3.5-5.1 mmol/L Chloride Level 105 98-107 mmol/L Carbon Dioxide Level 26 20-31 mmol/L Anion Gap 9 5-15 Blood Urea Nitrogen 12 9-23 mg/dL Creatinine 0.83 0.700-1.30 mg/dL Glomerular Filtration Rate Calc 107 >90 mL/min BUN/Creatinine Ratio 14.5 10.0-20.0 Serum Glucose 92 74-106 mg/dL Calcium Level 9.5 8.7-10.4 mg/dL Total Bilirubin 2.0 H 0.2-1.0 mg/dL Aspartate Amino Transferase (AST) 211 H 13-40 U/L Alanine Aminotransferase (ALT) 130 H 7-40 U/L Alkaline Phosphatase 112 46-116 U/L Total Protein 7.5 5.7-8.2 g/dL Albumin 4.7 3.2-4.8 g/dL Lipase 45 12-53 U/L Plasma/Serum Blood Alcohol < 3.0 <10 mg/dL IV Hep-Lock was established. The patient was given Protonix 40 mg IV push The patient's CBC is within normal limits The chemistry panel is within normal limits accept for a total bilirubin of 2.0 The liver enzymes are elevated An ultrasound of the gallbladder shows: IMPRESSION: Hepatomegaly with diffuse hepatic steatosis. Trace gallbladder sludge with borderline gallbladder wall thickening. At this time, the patient is being admitted to the hospitalist. Images Reviewed?: Images reviewed and evaluated by me Time of 1ST Reevaluation: 16:16 Reevaluation 1ST: Unchanged Patient Education/Counseling: Diagnosis, Treatment, Prognosis Family Education/Counseling: No Family Present SEPSIS Sepsis Screen Date sepsis recognized/suspect: Apr 18, 2025 Time Sepsis recognized/suspect: 1555 Recent Procedure: No On Antibiotic Therapy: No Respiratory Rate >20: No Heart Rate >90: Yes Temp<36 C (96.8 F) or >38.3 C: No SBP <90 or MAP <65 mmHG: No New Acute Mental Status Change: No Is the patient on CPAP, BIPAP,: No Physician Orders Urinalysis (04/18/25 16:04) Heplock Iv (04/18/25 16:04) Shorts Sifter (04/18/25 16:04) Blood Pressure (04/18/25 16:04) Pulse Oximetry (04/18/25 16:04) Gallbladder (04/18/25 16:04) Vital Signs Date Time Temp Pulse Resp B/P (MAP) Pulse Ox O2 Delivery O2 Flow Rate FiO2 04/18/25 15:58 98.6 98 20 144/84 99 98.6 Laboratory Tests Test 04/18/25 16:21 White Blood Count 10.5 10^3/uL (4.4-10.8) Departure 1 Departure Time of Disposition: 19:15 Impression: Primary Impression: Intractable abdominal pain Additional Impression: Gallbladder sludge Disposition: ADMITTED INPATIENT Admit to: Med Surg Condition: Fair Critical Care Note Critical Care Time?: No Stability Stability form required: Yes Unstable for transfer: ED Physician Assesment (Clinical assesment) Heart Score Heart Score: Heart Score Response (Comments) Value History N/A 0 EKG N/A 0 Age N/A 0 Risk Factors N/A 0 Troponin N/A 0 Total 0 JOHANA WALSH MD Apr 18, 2025 16:26
[2025-04-18 16:48] LABS: Hematocrit 45.4 % (41.0-53.0); Hemoglobin 15.5 g/dL (13.5-17.5); Mean Corpuscular Hemoglobin 30.0 pg (28.0-32.0); Mean Corpuscular Volume 87.9 fL (80.0-100.0); Nucleated Red Blood Cells % 0.1 %
[2025-04-18 17:03] LABS: Albumin 4.7 g/dL (3.2-4.8); Alkaline Phosphatase 112 U/L (46-116); Anion Gap 9 (5-15); BUN/Creatinine Ratio 14.5 (10.0-20.0); Blood Urea Nitrogen 12 mg/dL (9-23); Calcium 9.5 mg/dL (8.7-10.4); Carbon Dioxide 26 mmol/L (20-31); Chloride 105 mmol/L (98-107); Glucose 92 mg/dL (74-106); Potassium 3.8 mmol/L (3.5-5.1); Sodium 140 mmol/L (136-145); Total Protein 7.5 g/dL (5.7-8.2)
[2025-04-18 17:07] LABS: Alanine Aminotransferase 130 U/L (7-40); Bilirubin, Total 2.0 mg/dL (0.2-1.0)
[2025-04-18 17:23] LABS: Lipase 45 U/L (12-53)
--- NOTE | 2025-04-18 17:39 | DVH ---
CLINICAL HISTORY: pain TECHNIQUE: Transabdominal sonogram was performed of the right upper quadrant. COMPARISON: NM NM HIDA SCAN on DOS: 10/13/23, US LIVER on DOS: 10/09/23 FINDINGS: The liver is increased in echogenicity. There is no focal parenchymal abnormality. No intrahepatic biliary ductal dilatation is present. The liver measures 20.4 cm. The gallbladder demonstrates borderline wall thickening at 3 mm with trace sludge. No gallstone is seen. Sonographic diaz's sign is reported to be absent. The common bile duct is normal in caliber, measuring 5.9 mm. The partially visualized pancreas is grossly unremarkable. The right kidney is normal in echogenicity and measures 11.4 cm in length. There is no evidence for hydronephrosis or calculi. IMPRESSION: Hepatomegaly with diffuse hepatic steatosis. Trace gallbladder sludge with borderline gallbladder wall thickening.
[2025-04-18 19:43] LABS: RBC Morphology Normal
[2025-04-18] MEDS: SODIUM CHLORIDE 0.9% 1,000 ML IVB ONE (20:29)
[2025-04-18] MEDS: PANTOPRAZOLE 40 MG/10 ML VIAL INJ IV ONE (20:32)
[2025-04-18] MEDS: ONDANSETRON HCL 4 MG/2 ML VIAL IV ONE (20:32)
[2025-04-18] MEDS: MORPHINE SULFATE 4 MG/ML SYR/VIAL IV ONE (21:28)
[2025-04-18] MEDS ORDERED: HYDROcodone-ACET 5/325MG TAB PO PRN (23:15)
[2025-04-18] MEDS ORDERED: ONDANSETRON HCL 4 MG/2 ML VIAL IV PRN (23:15)
[2025-04-18 23:28] LABS: Urine Protein, UAD TRACE (Negative)
--- NOTE | 2025-04-18 23:50 | ECG ---
[facility] Test Date: 2025-04-18 Test Time: 23:13:53 Pat Name: TAMARA GEIGER Department: ED Room: [address] [place] [address] A Gender: M Customer Service Agent: [email or web address] : 1975 Requested By: BRENDA WHITE Order Number: [id number] Reading MD: Da Valle Measurements Intervals [place] Rate: 79 P: 31 CO: 147 QRS: 34 QRSD: 91 T: -28 QT: 371 QTc: 426 Interpretive Statements Sinus rhythm Borderline repolarization abnormality Electronically Signed On 04-22-2025 10:29:23 PST by Da Valle Please click the below link to view image of tracing.
[2025-04-19] MEDS ORDERED: ACETAMINOPHEN 325 MG TAB PO SCH
[2025-04-19] MEDS ORDERED: ONDANSETRON HCL 4 MG/2 ML VIAL IV PRN ×3 (00:12→14:00)
[2025-04-19] MEDS ORDERED: MAALOX PLUS or MAALOX 30 ML PO PRN ×2 (00:12→01:45)
--- NOTE | 2025-04-19 04:47 | DVHDSRES ---
Discharge Summary Date of Admission Resident Creating Document: JAZMIN SPAULDING Apr 18, 2025 at 23:03 Date of Discharge: Apr 18, 2025 Admitting Diagnosis Intractable abdominal pain Labs/Diagnostic Data: Laboratory Results Test 04/18/25 23:10 04/18/25 16:21 Urine Color Dark-yellow (Yellow) Urine Clarity Clear (Clear) Urine pH 6.0 (5.0-9.0) Urine Specific [place] 1.028 (1.001-1.035) Urine Protein Trace (Negative) Urine Ketones Trace (Negative) Urine Blood Negative /uL (Negative) Urine Nitrite Negative (Negative) Urine Bilirubin 2+ (Negative) Urine Urobilinogen 4 mg/dL (Negative) Urine Leukocyte Esterase Negative /uL (Negative) Urine RBC None seen /hpf (0 - 3) Urine Microscopic WBC 5 /HPF (0-3) Urine Squamous Epithelial Cells Few /hpf (<5) Urine Bacteria None seen /hpf (None Seen) Urine Mucus Few (None Seen) Urine Glucose Normal mg/dL (Normal) White Blood Count 10.5 10^3/uL (4.4-10.8) Red Blood Count 5.17 10^6/uL (4.5-5.90) Hemoglobin 15.5 g/dL (13.5-17.5) Hematocrit 45.4 % (41.0-53.0) Mean Corpuscular Volume 87.9 fL (80.0-100.0) Mean Corpuscular Hemoglobin 30.0 pg (28.0-32.0) Mean Corpuscular Hemoglobin Concent 34.2 g/dL (32.0-36.0) Red Cell Distribution Width 13.1 % (11.8-14.3) Platelet Count 244 10^3/uL (140-450) Mean Platelet Volume 6.5 fL (6.9-10.8) Neutrophils (%) (Auto) 96.0 % (37.0-80.0) Lymphocytes (%) (Auto) 2.6 % (10.0-50.0) Monocytes (%) (Auto) 1.1 % (0.0-12.0) Eosinophils (%) (Auto) 0.1 % (0.0-7.0) Basophils (%) (Auto) 0.2 % (0.0-2.0) Neutrophils # (Auto) 10.1 10 ^3/uL (1.6-8.6) Lymphocytes # (Auto) 0.3 10 ^3/uL (0.4-5.4) Monocytes # (Auto) 0.1 10 ^3/uL (0-1.3) Eosinophils # (Auto) 0 10 ^3/uL (0-0.8) Basophils # (Auto) 0 10 ^3/uL (0-0.2) Nucleated Red Blood Cells 0.1 % Platelet Estimate Adequate Red Blood Cell Morphology Normal Sodium Level 140 mmol/L (136-145) Potassium Level 3.8 mmol/L (3.5-5.1) Chloride Level 105 mmol/L (98-107) Carbon Dioxide Level 26 mmol/L (20-31) Anion Gap 9 (5-15) Blood Urea Nitrogen 12 mg/dL (9-23) Creatinine 0.83 mg/dL (0.700-1.30) Glomerular Filtration Rate Calc 107 mL/min (>90) BUN/Creatinine Ratio 14.5 (10.0-20.0) Serum Glucose 92 mg/dL (74-106) Calcium Level 9.5 mg/dL (8.7-10.4) Total Bilirubin 2.0 mg/dL (0.2-1.0) Aspartate Amino Transferase (AST) 211 U/L (13-40) Alanine Aminotransferase (ALT) 130 U/L (7-40) Alkaline Phosphatase 112 U/L (46-116) Total Protein 7.5 g/dL (5.7-8.2) Albumin 4.7 g/dL (3.2-4.8) Lipase 45 U/L (12-53) Plasma/Serum Blood Alcohol < 3.0 mg/dL (<10) Other Laboratory Tests 04/18/25 16:21 Brief Hx & Hospital Course: 50-year-old male who comes in with chief complaint of epigastric pain. The patient states that the pain does not radiate started at approximately 930 this morning. The patient states that he is having some nausea and vomiting but no fever. The patient is also having some chills. 911 was called and the patient was transported to our facility. Upon arrival, the patient is still having the pain. Patient called 3 times in ER lobby. Patient has eloped. Condition at Discharge: Undetermined Final Diagnosis/Problems List Intractable abdominal pain due to alcoholic gastritis/symptomatic cholelithiasis Symptomatic cholelithiasis Morbid obesity BMI 33.7 Discharge Disposition: Eloped Discharge Instruct/Medications Scheduled Levofloxacin Hemihydrate (Levaquin 500 Mg), 1 TAB PO DAILY Scheduled PRN Hydrocodone-Acetaminophen (Hydrocodone Bitartrate/AC 5-325 mg), 1 TAB PO Q4HP PRN Discharge Statement: "Patient was advised to return to the ER or call 911 if any headaches, dizziness, shortness of breath, chest pain, abdominal pain, bleeding, fevers, or worsening of medical condition. Patient was counseled about treatment plan, medications, possible side effects, patientverbalized understanding. All questions were answered to the best of my ability. This discharge took greater then 30 minutes in planning, reviewing documentation, counseling the patient, and discussing with other team members." ASSESSMENT ASSESSMENT Assessment Visit Coding STANDARD RES Billing Provider: EAGLE MARIN MD Date of Service if different f: Apr 18, 2025 Common Visit Codes: 98439-GPPOQSH INP/OBS CARE (HIGH), 03631-COC/OBS DISCH DAY >30min Secondary Visit Codes: 99877-[id number] CARE PLAN 30 MINUTES JAZMIN SPAULDING RESIDENT Apr 19, 2025 04:47 EAGLE MARIN MD Apr 22, 2025 23:49
--- NOTE | 2025-04-19 05:45 | DVHHPRES ---
History of Present Illness Resident Creating Document: JAZMIN SPAULDING RESIDENT History of Present Illness 50-year-old male who comes in with chief complaint of epigastric pain. The patient states that the pain does not radiate started at approximately 930 this morning. The patient states that he is having some nausea and vomiting but no fever. The patient is also having some chills. 911 was called and the patient was transported to our facility. Patient had right upper quadrant pain since 1 week which had worsened. Upon arrival, the patient is still having the pain. Surgical history: Appendectomy Personal history: Patient denies smoking, drinks 10-12 beers per day since greater than 10 years, denies drug use Review of Systems Constitutional: No: Fever, Chills, Sweats, Weakness, Malaise, Other Eyes: No: Pain, Vision change, Conjunctivae inflammation, Eyelid inflammation, Other, Redness ENT: No: Ear pain, Ear discharge, Nose pain, Nose discharge, Nose congestion, Mouth pain, Mouth swelling, Throat pain, Throat swelling, Other Cardiovascular: No: Chest Pain, Palpitations, Orthopnea, Paroxysmal Noc. Dysp tiarra, Edema, Lt Headedness, Other Gastrointestinal: Nausea, Vomiting, Abdominal Pain Genitourinary: No Dysuria, No Frequency, No Incontinence, No Hematuria, No Retention, No Other Musculoskeletal: No: other, neck pain, shoulder pain, arm pain, back pain, hand pain, leg pain, foot pain Skin: No: Rash, Lesions, Jaundice, Bruising, Other Neurological: No: Weakness, Numbness, Incoordination, Change in speech, Confusion, Seizures, Other Allergies: Coded Allergies: NO KNOWN ALLERGIES (Unverified , 11/28/09) Medications Current Medications Medications Dose Ordered Sig/Jillian Route Start Time Stop Time Status Last Admin Dose Admin Famotidine 20 mg DAILY IV 04/19/25 10:00 Al Hydrox/Mg Hydrox/Simethicone 15 ml Q8HP PRN PO 04/19/25 01:45 Exam Vital Signs Vital Signs Date Time Temp Pulse Resp B/P (MAP) Pulse Ox O2 Delivery O2 Flow Rate FiO2 04/18/25 23:13 79 04/18/25 21:28 18 146/94 04/18/25 20:55 98.1 99 98.1 Exam General: Patient alert and oriented in person, place and time. Patient following commands. HEENT: Normocephalic, atraumatic, moist mucous membranes Respiratory/pulmonary: Clear lungs bilaterally, vesicular murmurs present in almost all lung saul, no associated crackles or wheezes. Cardiovascular: Normal heart sounds S1 and S2 with no associated murmurs Abdomen: Epigastric tenderness on palpation Extremities: There is no peripheral edema present at the lower extremities. Peripheral Pulses: 3+ Radial (R). 3+ Radial (L). 3+ Dorsalis pedis (R). 3+ Dorsalis pedis(L) Skin: No rashes or pruritus, there is no sacral edema present at this time. Neurological: Intact cranial nerves with no focal neurologic deficits Labs/Xrays Labs Test 04/18/25 23:10 04/18/25 16:21 Range/Units Urine Color Dark-yellow Yellow Urine Clarity Clear Clear Urine pH 6.0 5.0-9.0 Urine Specific [place] 1.028 1.001-1.035 Urine Protein Trace H Negative Urine Ketones Trace Negative Urine Blood Negative Negative /uL Urine Nitrite Negative Negative Urine Bilirubin 2+ Negative Urine Urobilinogen 4 H Negative mg/dL Urine Leukocyte Esterase Negative Negative /uL Urine RBC None seen 0 - 3 /hpf Urine Microscopic WBC 5 H 0-3 /HPF Urine Squamous Epithelial Cells Few <5 /hpf Urine Bacteria None seen None Seen /hpf Urine Mucus Few None Seen Urine Glucose Normal Normal mg/dL White Blood Count 10.5 4.4-10.8 10^3/uL Red Blood Count 5.17 4.5-5.90 10^6/uL Hemoglobin 15.5 13.5-17.5 g/dL Hematocrit 45.4 41.0-53.0 % Mean Corpuscular Volume 87.9 80.0-100.0 fL Mean Corpuscular Hemoglobin 30.0 28.0-32.0 pg Mean Corpuscular Hemoglobin Concent 34.2 32.0-36.0 g/dL Red Cell Distribution Width 13.1 11.8-14.3 % Platelet Count 244 140-450 10^3/uL Mean Platelet Volume 6.5 L 6.9-10.8 fL Neutrophils (%) (Auto) 96.0 H 37.0-80.0 % Lymphocytes (%) (Auto) 2.6 L 10.0-50.0 % Monocytes (%) (Auto) 1.1 0.0-12.0 % Eosinophils (%) (Auto) 0.1 0.0-7.0 % Basophils (%) (Auto) 0.2 0.0-2.0 % Neutrophils # (Auto) 10.1 H 1.6-8.6 10 ^3/uL Lymphocytes # (Auto) 0.3 L 0.4-5.4 10 ^3/uL Monocytes # (Auto) 0.1 0-1.3 10 ^3/uL Eosinophils # (Auto) 0 0-0.8 10 ^3/uL Basophils # (Auto) 0 0-0.2 10 ^3/uL Nucleated Red Blood Cells 0.1 % Platelet Estimate Adequate Red Blood Cell Morphology Normal Sodium Level 140 136-145 mmol/L Potassium Level 3.8 3.5-5.1 mmol/L Chloride Level 105 98-107 mmol/L Carbon Dioxide Level 26 20-31 mmol/L Anion Gap 9 5-15 Blood Urea Nitrogen 12 9-23 mg/dL Creatinine 0.83 0.700-1.30 mg/dL Glomerular Filtration Rate Calc 107 >90 mL/min BUN/Creatinine Ratio 14.5 10.0-20.0 Serum Glucose 92 74-106 mg/dL Calcium Level 9.5 8.7-10.4 mg/dL Total Bilirubin 2.0 H 0.2-1.0 mg/dL Aspartate Amino Transferase (AST) 211 H 13-40 U/L Alanine Aminotransferase (ALT) 130 H 7-40 U/L Alkaline Phosphatase 112 46-116 U/L Total Protein 7.5 5.7-8.2 g/dL Albumin 4.7 3.2-4.8 g/dL Lipase 45 12-53 U/L Plasma/Serum Blood Alcohol < 3.0 <10 mg/dL SEPSIS Sepsis Screen Date sepsis recognized/suspect: Apr 18, 2025 Time Sepsis recognized/suspect: 1555 Recent Procedure: No On Antibiotic Therapy: No Respiratory Rate >20: No Heart Rate >90: Yes Temp<36 C (96.8 F) or >38.3 C: No SBP <90 or MAP <65 mmHG: No New Acute Mental Status Change: No Is the patient on CPAP, BIPAP,: No Physician Orders Admit (04/18/25 23:03) Code Status (04/18/25 23:03) Nm Hida Scan (04/19/25 01:43) Famotidine Injection (Pepcid Injection) (04/19/25 10:00) Alum & Mag Hydrox-Simethicone (Maalox Pl (04/19/25 01:45) Drug Screen (04/19/25 01:43) PTPTT (04/19/25 01:43) Vital Signs Date Time Temp Pulse Resp B/P (MAP) Pulse Ox O2 Delivery O2 Flow Rate FiO2 04/18/25 23:13 79 Assessment/Plan Assessment/Plan Intractable abdominal pain likely due to alcoholic gastritis/symptomatic cholelithiasis Symptomatic cholelithiasis HIDA scan Gallbladder ultrasound showed gallbladder surgery IV pain medication Pepcid Maalox Obesity BMI 33.7 Goals of care addressed with the patient for more than 27 minutes: Full code status Case discussed with Dr. Marin, patient and nurse Plan discussed with: Patient My Orders Orders - JAZMIN SPAULDING Procedure Category Date Status Time Admit ADMIT 04/18/25 Transmitted 23:03 Code Status CODE 04/18/25 Transmitted 23:03 Nm Hida Scan NM 04/19/25 Logged 01:43 Famotidine Injection PHA 04/19/25 In Process (Pepcid Injection) 10:00 Alum & Mag PHA 04/19/25 In Process Hydrox-Simethicone 01:45 Drug Screen LAB 04/19/25 Logged 01:43 PTPTT LAB 04/19/25 Logged 01:43 Visit Coding STANDARD RES Billing Provider: EAGLE MARIN MD Date of Service if different f: Apr 18, 2025 Common Visit Codes: [id number] INP/OBS CARE (HIGH) Secondary Visit Codes: [id number] CARE PLAN 30 MINUTES JAZMIN SPAULDING Apr 19, 2025 05:45
[2025-04-19] MEDS: SODIUM CHLORIDE 0.9% 1,000 ML IV ONE (06:59)
[2025-04-19] MEDS ORDERED: MORPHINE SULFATE 4 MG/ML SYR/VIAL IV PRN ×2 (07:00→14:00)
[2025-04-19 07:47] VITALS: PULSE 67; RESP 18; O2SAT 98
[2025-04-19] MEDS ORDERED: FAMOTIDINE (10MG/ML) 2ML VL IV SCH ×2 (10:00)
[2025-04-19 10:48] LABS: INR 1.08 (0.9-1.15); Partial Thromboplastin Time 29.9 SEC (24.5-34.5); Prothrombin Time 11.4 sec (9.3-11.8)
[2025-04-19 12:36] VITALS: PULSE 75; RESP 16; O2SAT 95
--- NOTE | 2025-04-19 12:43 | DVH ---
CLINICAL INFORMATION: Rule out cholecystitis. TECHNIQUE: 6.1 mCi of Choletec were administered intravenously. Images of the upper abdomen were obtained at multiple intervals up to a total time of 60 minutes. COMPARISON: NM NM HIDA SCAN on DOS: 10/13/23 FINDINGS: Gallbladder is not visualized on the initial 60 minutes of imaging. No visualized small bowel on the initial 60 minutes of imaging. On delayed images obtained at 4:00 a.m. after administration, there is faint activity within the expected location of the gallbladder and there is activity within the small bowel. IMPRESSION: 1. Delayed visualization of the gallbladder, with faint activity seen in the gallbladder on 4 hour delayed images. May be due to functional gallbladder disorder. Correlate with clinical Findings. 2. There is also delayed excretion of radiopharmaceutical into the small bowel, may be seen with functional gallbladder disorder.
[2025-04-19] MEDS: MORPHINE SULFATE 4 MG/ML SYR/VIAL IV PRN (13:04)
[2025-04-19] MEDS: ONDANSETRON HCL 4 MG/2 ML VIAL IV ONE (13:05)
[2025-04-19] MEDS: MORPHINE SULFATE 4 MG/ML SYR/VIAL ONE (13:05)
[2025-04-19] MEDS: ONDANSETRON HCL 4 MG/2 ML VIAL ONE (13:06)
[2025-04-19 13:34] LABS: Albumin 4.6 g/dL (3.2-4.8); Anion Gap 9 (5-15); BUN/Creatinine Ratio 22.1 (10.0-20.0); Blood Urea Nitrogen 19 mg/dL (9-23); Calcium 9.3 mg/dL (8.7-10.4); Carbon Dioxide 27 mmol/L (20-31); Chloride 104 mmol/L (98-107); Glucose 91 mg/dL (74-106); Magnesium 2.1 mg/dL (1.6-2.6); Potassium 4.3 mmol/L (3.5-5.1); Sodium 140 mmol/L (136-145); Total Protein 6.8 g/dL (5.7-8.2)
[2025-04-19 13:40] VITALS: BP 140/91; PULSE 76; RESP 18; TEMP 98.4; O2SAT 96
[2025-04-19 13:43] LABS: Alanine Aminotransferase 390 U/L (7-40); Alkaline Phosphatase 117 U/L (46-116); Bilirubin, Total 6.5 mg/dL (0.2-1.0)
[2025-04-19] MEDS: MAALOX PLUS or MAALOX 30 ML PO PRN (13:57)
[2025-04-19 14:00] LABS: Hematocrit 41.2 % (41.0-53.0); Hemoglobin 14.1 g/dL (13.5-17.5); Mean Corpuscular Hemoglobin 29.9 pg (28.0-32.0); Mean Corpuscular Volume 87.5 fL (80.0-100.0); Nucleated Red Blood Cells % 0.0 %
--- NOTE | 2025-04-19 17:19 | DVHDS2 ---
Discharge Summary Date of Admission Apr 18, 2025 at 23:03 Date of Discharge: Apr 18, 2025 Labs/Diagnostic Data: Laboratory Results Test 04/19/25 13:50 04/19/25 10:17 04/18/25 23:10 04/18/25 16:21 White Blood Count 9.3 10^3/uL (4.4-10.8) Red Blood Count 4.71 10^6/uL (4.5-5.90) Hemoglobin 14.1 g/dL (13.5-17.5) Hematocrit 41.2 % (41.0-53.0) Mean Corpuscular Volume 87.5 fL (80.0-100.0) Mean Corpuscular Hemoglobin 29.9 pg (28.0-32.0) Mean Corpuscular Hemoglobin Concent 34.2 g/dL (32.0-36.0) Red Cell Distribution Width 13.6 % (11.8-14.3) Platelet Count 204 10^3/uL (140-450) Mean Platelet Volume 6.5 fL (6.9-10.8) Neutrophils (%) (Auto) 85.8 % (37.0-80.0) Lymphocytes (%) (Auto) 7.4 % (10.0-50.0) Monocytes (%) (Auto) 6.4 % (0.0-12.0) Eosinophils (%) (Auto) 0.3 % (0.0-7.0) Basophils (%) (Auto) 0.1 % (0.0-2.0) Neutrophils # (Auto) 7.9 10 ^3/uL (1.6-8.6) Lymphocytes # (Auto) 0.7 10 ^3/uL (0.4-5.4) Monocytes # (Auto) 0.6 10 ^3/uL (0-1.3) Eosinophils # (Auto) 0 10 ^3/uL (0-0.8) Basophils # (Auto) 0 10 ^3/uL (0-0.2) Nucleated Red Blood Cells 0.0 % Prothrombin Time 11.4 sec (9.3-11.8) Prothrombin Time INR 1.08 (0.9-1.15) Activated Partial Thromboplast Time 29.9 SEC (24.5-34.5) Sodium Level 140 mmol/L (136-145) Potassium Level 4.3 mmol/L (3.5-5.1) Chloride Level 104 mmol/L (98-107) Carbon Dioxide Level 27 mmol/L (20-31) Anion Gap 9 (5-15) Blood Urea Nitrogen 19 mg/dL (9-23) Creatinine 0.86 mg/dL (0.700-1.30) Glomerular Filtration Rate Calc 105 mL/min (>90) BUN/Creatinine Ratio 22.1 (10.0-20.0) Serum Glucose 91 mg/dL (74-106) Calcium Level 9.3 mg/dL (8.7-10.4) Magnesium Level 2.1 mg/dL (1.6-2.6) Total Bilirubin 6.5 mg/dL (0.2-1.0) Aspartate Amino Transferase (AST) 346 U/L (13-40) Alanine Aminotransferase (ALT) 390 U/L (7-40) Alkaline Phosphatase 117 U/L (46-116) Total Protein 6.8 g/dL (5.7-8.2) Albumin 4.6 g/dL (3.2-4.8) Urine Color Dark-yellow (Yellow) Urine Clarity Clear (Clear) Urine pH 6.0 (5.0-9.0) Urine Specific [place] 1.028 (1.001-1.035) Urine Protein Trace (Negative) Urine Ketones Trace (Negative) Urine Blood Negative /uL (Negative) Urine Nitrite Negative (Negative) Urine Bilirubin 2+ (Negative) Urine Urobilinogen 4 mg/dL (Negative) Urine Leukocyte Esterase Negative /uL (Negative) Urine RBC None seen /hpf (0 - 3) Urine Microscopic WBC 5 /HPF (0-3) Urine Squamous Epithelial Cells Few /hpf (<5) Urine Bacteria None seen /hpf (None Seen) Urine Mucus Few (None Seen) Urine Glucose Normal mg/dL (Normal) Platelet Estimate Adequate Red Blood Cell Morphology Normal Lipase 45 U/L (12-53) Plasma/Serum Blood Alcohol < 3.0 mg/dL (<10) Other Laboratory Tests 04/19/25 13:50 04/19/25 10:17 Brief Hx & Hospital Course: Final diagnoses: Acute cholecystitis Acute biliary obstruction Rule out choledocholithiasis Cholelithiasis I saw the patient in the ER, explained to him that HIDA scan showed inflammation in the gallbladder and I advised a surgical and GI consultations but I just found out that the patient left the hospital for the ER. Condition at Discharge: Undetermined Final Diagnosis/Problems List Acute cholecystitis Acute biliary obstruction Rule out choledocholithiasis Cholelithiasis Discharge Disposition: Eloped SNF Discharge Will this Physician continue t: No Discharge Instruct/Medications Scheduled Levofloxacin Hemihydrate (Levaquin 500 Mg), 1 TAB PO DAILY Scheduled PRN Hydrocodone-Acetaminophen (Hydrocodone Bitartrate/AC 5-325 mg), 1 TAB PO Q4HP PRN Discharge Statement: "Patient was advised to return to the ER or call 911 if any headaches, dizziness, shortness of breath, chest pain, abdominal pain, bleeding, fevers, or worsening of medical condition. Patient was counseled about treatment plan, medications, possible side effects, patientverbalized understanding. All questions were answered to the best of my ability. This discharge took greater then 30 minutes in planning, reviewing documentation, counseling the patient, and discussing with other team members." ASSESSMENT ASSESSMENT Assessment Intractable abdominal pain due to alcoholic gastritis/symptomaticcholelithiasisSymptomatic cholelithiasis Morbid obesity BMI 33.7 Date of Service: Apr 19, 2025 Billing Provider: DEV KAPOOR MD Common Visit Codes: 06633-VKA/OBS DISCH DAY >30min DEV KAPOOR MD Apr 19, 2025 17:19
[2025-04-20] MEDS ORDERED: FAMOTIDINE (10MG/ML) 2ML VL IV SCH (10:00)
== END 2025-04-19 16:15 | disposition left against medical advice (07) ==
LOC: EDBD 15:58 → EDUNIT# 15:58 → ER 15:58 → OVERFLOW 23:03 → UNDODISIN 04-19 00:12 → UNDODEPER 04-19 11:42
DX: K80.01 Calculus of gallbladder with acute cholecystitis with obstruction (principal); R16.0 Hepatomegaly, not elsewhere classified; K29.20 Alcoholic gastritis without bleeding; E66.01 Morbid (severe) obesity due to excess calories; I10 Essential (primary) hypertension; K76.0 Fatty (change of) liver, not elsewhere classified; Z53.29 Procedure and treatment not carried out because of patient's decision for other reasons; Z68.33 Body mass index [BMI] 33.0-33.9, adult; K82.8 Other specified diseases of gallbladder; Z87.891 Personal history of nicotine dependence
CPT/HCPCS: 36415; 76705; 78226; 80053; 80320; 81001; 83690; 83735; 85025; 85610; 85730; 93005; 96374; 96375; G0378; J2405; J2470